=== PATIENT | male | born 1985 | race Caucasian/White ===

== ENCOUNTER 2017-01-28 09:31 | Emergency (ER) | payer OTHER ==
[~2017-01-28] VITALS: Ht 177.8 cm; Wt 65.0 kg
[2017-01-28] VITALS (10 sets, daily range): BP systolic 133–174; BP diastolic 58–96; PULSE 60–97; RESP 16; O2SAT 99–100
[2017-01-28] MEDS ORDERED: MORPHINE SULFATE 8 MG/ML INJ ONE (09:35)
[2017-01-28] MEDS ORDERED: ONDANSETRON HCL 4 MG/2 ML VIAL ONE ×2 (09:35→11:03)
[2017-01-28] MEDS ORDERED: IOHEXOL 350 MG/ML 10 ML VIAL (for RAD DIAG) IV ONE (09:47)
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
[2017-01-28 09:58] LABS: I-STAT POTASSIUM 3.5 MMOL/L (3.5-4.9); I-STAT SODIUM 142 MMOL/L (138-146)
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
[2017-01-28 10:13] LABS: APTT (PATIENT) 21.4 SEC (24.3-30.1); PROTHROMBIN TIME - PATIENT 11.3 SEC (9.8-11.6)
[2017-01-28] MEDS ORDERED: MORPHINE SULFATE 4 MG/ML INJ IV PUSH ONE ×2 (10:15→11:00)
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
[2017-01-28 10:48] LABS: AUTOMATED NEUTROPHIL # 15.1 TH/MM3 (1.8-7.7); BASOPHIL # 0.1 TH/MM3 (0-0.2); BASOPHIL % 0.6 % (0.0-2.0); EOSINOPHIL # 0.1 TH/MM3 (0-0.4); EOSINOPHIL % 0.5 % (0.0-4.0); HEMATOCRIT 36.7 % (39.0-51.0); HEMO FLAGS DIFF FINAL; LYMPH % 12.5 % (9.0-44.0); LYMPHOCYTE # 2.3 TH/MM3 (1.0-4.8); MEAN CELL VOLUME 87.9 FL (80.0-100.0); MEAN CORPUSCULAR HGB CONC 33.1 % (32.0-36.0); MONO % 3.6 % (0.0-8.0); NEUT % 82.8 % (16.0-70.0); PLATELET COUNT 206 TH/MM3 (150-450); RED BLOOD COUNT 4.18 MIL/MM3 (4.50-5.90); RED CELL DISTRIBUTION WIDTH 14.1 % (11.6-17.2); WHITE BLOOD COUNT 18.2 TH/MM3 (4.0-11.0)
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
[2017-01-28] MEDS ORDERED: AMPICILLIN-SULBACTAM INJ 3 GM in SODIUM CHLORIDE 0.9% INJ 100 ML IV ONE (11:00)
[2017-01-28] MEDS ORDERED: ETOMIDATE 20 MG/10 ML VIAL ONE (11:08)
[2017-01-28] MEDS ORDERED: SUCCINYLCHOLINE CHLORIDE 200 MG/10 ML VIAL ONE (11:08)
[2017-01-28] MEDS ORDERED: PROPOFOL 1000 MG/100 ML INJ 100 ML ONE (11:10)
[2017-01-28] MEDS ORDERED: PROPOFOL 1000 MG/100 ML INJ 100 ML IV SCH (11:15)
[2017-01-28] MEDS ORDERED: ETOMIDATE 20 MG/10 ML VIAL IV PUSH ONE (11:15)
[2017-01-28] MEDS ORDERED: SUCCINYLCHOLINE CHLORIDE 200 MG/10 ML VIAL IV PUSH ONE (11:15)
[2017-01-28] MEDS ORDERED: MIDAZOLAM HCL 5 MG/5 ML VIAL IV PUSH ONE (11:45)
[2017-01-28] MEDS ORDERED: fentaNYL DRIP 250 ML IV SCH (11:45)
[2017-01-28] MEDS ORDERED: MIDAZOLAM HCL 5 MG/ML VIAL (1 ML) ONE (11:46)
[2017-01-28] MEDS ORDERED: fentaNYL DRIP 250 ML ONE (11:46)
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
--- NOTE | 2017-01-28 13:21 | RADRPT ---
EXAM DATE/TIME: 01/28/2017 11:45 [facility] COMPARISON: CHEST SINGLE AP, January 28, 2017, 9:25. INDICATIONS : Evaluate ET tube placement. MEDICAL HISTORY : None. SURGICAL HISTORY : None. ENCOUNTER: Initial ACUITY: 1 day PAIN SCORE: Non-responsive. LOCATION: Bilateral chest FINDINGS: The endotracheal tube has its tip 3 cm above the shakila in good position. A nasogastric tube is loop ed in the stomach in good position. The heart and mediastinal structures are normal. The pulmonary v ascular pattern is normal. The lungs are clear. CONCLUSION: 1. Endotracheal tube in good position 3 cm above the shakila. 2. Nasogastric tube in good position looped in the stomach. 3. No acute cardiopulmonary disease. Hilton Tillman MD on January 28, 2017 at 13:11 Board Certified Radiologist. This report was verified electronically.
[2017-01-28 13:23] LABS: BLOOD, URINE MOD (NEG); GLUCOSE,URINE NEG (NEG); KETONE, URINE NEG (NEG); NITRITE,URINE NEG (NEG); PH, URINE 5.5 (5.0-8.5); URINE COLOR YELLOW (YELLW/STRAW)
[2017-01-28 13:24] LABS: COMMENT (UR) CULT NOT INDICATED; CULTURE IF INDICATED CULT NOT INDICATED
[2017-01-28 13:29] LABS: AMPHETAMINE, URINE NEG (NEG); BARBITURATES, URINE NEG (NEG); COCAINE, URINE NEG (NEG)
--- NOTE | 2017-01-28 15:32 | EKG ---
Date Performed: 01/28/2017 Time Performed: 10:09:49 PTAGE: 89 years EKG: Sinus rhythm POSSIBLE RIGHT VENTRICULAR CONDUCTION DELAY BORDERLINE ECG INTERPRETATION BASED ON A DEFAULT AGE OF 39 YEARS NO PREVIOUS TRACING DOCTOR: Derrick Mon Interpretating Date/Time 01/28/2017 15:30:45
== END 2017-01-28 13:25 | disposition short-term general hospital (02) ==
LOC: EDBD 09:31 → NEPI 09:31 → NEPE 13:25
DX: S51.812A Laceration without foreign body of left forearm, initial encounter (principal); S82.65XA Nondisplaced fracture of lateral malleolus of left fibula, initial encounter for closed fracture; S02.82XA Fracture of other specified skull and facial bones, left side, initial encounter for closed fracture; S02.19XA Other fracture of base of skull, initial encounter for closed fracture; S02.40DA Maxillary fracture, left side, initial encounter for closed fracture; S02.40FA Zygomatic fracture, left side, initial encounter for closed fracture; S10.91XA Abrasion of unspecified part of neck, initial encounter; S20.312A Abrasion of left front wall of thorax, initial encounter; V23.4XXA Motorcycle driver injured in collision with car, pick-up truck or van in traffic accident, initial encounter
CPT/HCPCS: 12006; 29505; 29515; 31500; 70450; 70486; 71010; 71260; 72125; 72128; 72131; 73090; 73600; 74177; 80307; 81001; 82435; 82565; 82947; 84132; 84295; 84520; 85025; 85610; 85730; 86850; 86900; 86901; 90471; 93005; 94002; 96365; 96375; 96376; 99291; J0295; J0330; J2250; J2270; J2405; J3010; Q9967